=== PATIENT | male | born 1980 | race Caucasian/White ===

== ENCOUNTER 2023-11-08 22:25 | Emergency (ER) | payer OTHER, SELFPAY ==
[2023-11-08 22:30] VITALS: BP 139/101
--- NOTE | 2023-11-08 23:11 | ED.MUSCINJ ---
HPI-Injury
General
Chief Complaint: Musculo-Skeletal Complaint
Source: patient
Exam Limitations: none
Time Seen by Provider: 11/08/23 23:08
Nursing documentation reviewed up to this point in time: agreed with
Travel History
Have you had any contact with someone who has COVID-19?: No
Do you have any symptoms of coronavirus? Fever > 100 degrees, chills, cough, shortness of breath, sore throat, loss of taste or smell, muscle aches, or headache?: No
History of Present Illness-Injury
Initial Injury comments:
43-year-old male with no significant past medical history fell snowboarding about 3 and half hours ago injuring his left wrist and right shoulder. No significant head injury, no loss of consciousness. Denies neck or back pain.
Past History
Past History
ED Past Medical History: None
ED Past Surgical History: None
Social History
Tobacco: Non-smoker
Personal:
Living: with family
Employment: Employed
Review of Systems
Review of Systems
Allergies reviewed?: Yes
All Other Systems: ROS reviewed and negative except as documented in HPI and ROS
Cardiac: Denies chest pain
ABD/GI: Denies abdominal pain
Musculoskeletal: Reports other (Pain right shoulder, pain left wrist.); Denies neck pain or back pain
Skin: Reports no symptoms
Neurological: Denies numbness
Phy Exam
Physical Exam
Physical Exam:
PHYSICAL EXAMINATION:
General: no apparent distress, not acutely ill
Neuro: alert and oriented.
Psychiatric: well kept. interactive and cooperative
Musculoskeletal: Right shoulder tender to palpate over AC joint, distal neurovascular intact. Left wrist tender, mild swelling, distal neurovascular intact.
Skin: Warm, pink.
Injury Course
Orders/Labs/Results
Orders:
Orders
11/08/23 22:33
CR Forearm - Left 2 View Urgent
Comment:
Reason For Exam: injury
CR Shoulder - Right Min 2 View Urgent
Comment:
Reason For Exam: injury
11/08/23 23:15
Ibuprofen [Motrin] 600 mg PO NOW STA
Wrist, Left 3 Views CR [CR Wrist - Left Min 3 Views] Urgent
Comment:
Reason For Exam: pain after fall
11/08/23 23:20
Sling Left-Treatment ONCE
Volar Left-Treatment ONCE
Procedures
Splint Check
Splint checked by provider?: Yes
Circulation/Movement/Sensation post splint application: brisk cap refill and full sensation
MDM/Problems Addressed
Differential Diagnosis Includes:
Right shoulder sprain/fracture/clavicle fracture, left wrist fracture
MDM/Problems Addressed:
43-year-old male with no significant past medical history fell snowboarding about 3 and half hours ago injuring his left wrist and right shoulder. No significant head injury, no loss of consciousness. Denies neck or back pain.
Shoulder x-ray initially read by this examiner: Negative for fracture or dislocation. Radiology report reveals a slightly widened acromioclavicular joint. Patient is tender over the AC joint. He has been having 'problems' with his shoulder
recently, he serves, he skateboards, he snowboards and could very well have injured this in the past.
Left forearm x-ray initially read by this examiner: There is a fracture of the wrist. I will send the patient back for dedicated wrist x-ray.
11/08/2023 2334 PM
Left wrist x-ray initially read by this examiner: Mildly angulated distal radial fracture
Recheck blood pressure by this examiner 135/90
*Critical Care Note
Total Time (30-74mins, 75-104mins- exclusive of procedures): Not Applicable
ED Attending Note
-
Portions of this chart may have been created with voice recognition software.� Occasional wrong word or��sound alike� substitutions may have occurred due to the inherent limitations of voice recognition software.
Discharge Plan
Departure
Patient Disposition: Home (Routine Discharge)
Date of Disposition: 11/08/23
Time of Disposition: 23:49
Patient with high blood pressure during this ER visit?: No
Condition: Good
Discharge Problem:
Fracture of left wrist, Accidental fall from snowboard, Soft tissue injury of right shoulder
Instructions: Shoulder Sprain (DC), Using Cold for Pain, Wrist Fracture
Referrals:
Hussain Flor MD [Active] - Next open appointment
Activity Restrictions/Additional Instructions:
As we discussed, you have fractured your left wrist. Keep the splint on until you see the orthopedic doctor. Call the office tomorrow to make the next available appointment
Have your right shoulder evaluated at the same time.
Ibuprofen 600 mg, with food, every 6 hours as needed for pain.
Interventions
Interventions:
*Risk Screen - Suicide Last Done: 11/08/23 22:30
*General Assessment Last Done: 11/08/23 22:30
*Neglect/Abuse Screening Last Done: 11/08/23 22:30
[2023-11-08] MEDS: MOTRIN 600 MG PO (23:21)
== END 2023-11-09 00:33 | disposition home or self-care (01) ==
LOC: EMR 22:25
PROVIDERS: EMERGENCY PHYSICIAN Emergency Medicine
DX: S52.502A Unspecified fracture of the lower end of left radius, initial encounter for closed fracture (principal); S43.401A Unspecified sprain of right shoulder joint, initial encounter; V00.311A Fall from snowboard, initial encounter; Y93.23 Activity, snow (alpine) (downhill) skiing, snowboarding, sledding, tobogganing and snow tubing
CPT/HCPCS: 99283; 29125; 73030; 73090; 73110

== ENCOUNTER 2023-11-14 06:18 | Day surgery (SDC) | payer OTHER, SELFPAY ==
[2023-11-14] VITALS (11 sets, daily range): BP systolic 112–137; BP diastolic 68–90; BMI 25.2
[2023-11-14] MEDS: CELEBREX 200 MG PO (11:14)
[2023-11-14] MEDS: NORMOSOL-R 1000 IV (11:14)
[2023-11-14] MEDS: TYLENOL 1000 MG PO (11:14)
[2023-11-14] MEDS: SUBLIMAZE 50 MCG IV ×2 (13:23→13:45)
[2023-11-14] MEDS: SUBLIMAZE 25 MCG IV (14:02)
[2023-11-14] MEDS: ROXICODONE 5 MG PO (14:39)
== END 2023-11-14 15:50 | disposition home or self-care (01) ==
LOC: SDS 06:18
PROVIDERS: ATTENDING PHYSICIAN Orthopaedic Surgery Hand Surgery
DX: S52.572A Other intraarticular fracture of lower end of left radius, initial encounter for closed fracture (principal); X58.XXXA Exposure to other specified factors, initial encounter
CPT/HCPCS: 25609; C1713